=== PATIENT | male | born 1935 | race Caucasian/White ===

== ENCOUNTER → 2018-03-24 | Outpatient (CLI) | payer OTHER, MEDICARE ==
[~2018-03-24] MED LIST: ASMTWH INH; ASPEC81 PO; ATEN-173 PO; CMD75; DIGO0.2518 PO; HYDC25 PO; MULT-190 PO; MULT-506 PO; SIMV40TA2 PO; TERA5CAP PO; TRVOPS OPB; meloxicam
[2018-03-24 15:23] LABS: INR 1.8 (0.9-1.1)
== END | disposition home or self-care (01) ==
LOC: C.LABSPEC 14:40
PROVIDERS: ATTEND Internal Medicine Cardiovascular Disease
DX: I48.91 Unspecified atrial fibrillation (principal)